=== PATIENT | male | born 1945 | race Caucasian/White ===

== ENCOUNTER 2018-09-22 13:07 | Emergency (ER) | payer MEDICARE, SELFPAY ==
[2018-09-22 13:08] VITALS: BP 123/77; PULSE 84; RESP 16; TEMP 36.5; BMI 22.6
--- NOTE | 2018-09-22 15:18 | ED.DCSUM_ITS ---
- ER Visit Summary Date of Service: 09/22/18 Chief Complaint: [Injury to right ear] History of Present Illness: The patient is a 73 M [the emergency department complaint of an injury to the right ear that occurred approximately noon today. Patient states that he was cutting some tree limbs when he tried to push one away from him however it struck him on the right ear. Patient denies limb hitting him in the head. No loss of consciousness. Patient is unsure of his last tetanus shot. The medical history.] Physical Examination: [HEENT-PERRLA, EOMI. Cranial nerves II through XII grossly intact. TMs clear. Mucous membranes moist. No adenopathy. Right ear- patient has a 4 cm complex laceration evolving the right ear with significant involvement of cartilage. Cardiovascular-regular rate and rhythm without murmur or ectopy Lungs-clear to auscultation, chest wall stable without crepitus or subcu emphysema Abdomen-normoactive bowel sounds, soft, nontender, no rebound or rigidity, no peritoneal signs. Extremities-intact ?4, normal range of motion, normal pulses, atraumatic] Test Results: [None indicated] Emergency Department Course and Treatment: [Patient was given Adacel tetanus booster. Case was discussed with ENT physician on-call as this is a complex laceration that I felt required consultation by specialist. ENT physician will present to the emergency department to evaluate patient and determine course of treatment.] Treatment Plan: [Patient advised to follow-up with Dr. Dhillon as advised by Dr. Dhillon. Patient advised to return if increasing pain, redness, swelling, purulent drainage, black discoloration to the ear, or conditions worsen anyway.] Patient will be started on Cipro at the request of Dr. Dhillon. Disposition: [Discharged home in stable condition.] Impression: [Complex right ear laceration] This note was generated with [employer] dictation software. It may contain incorrect words, spelling, and punctuation that were not noted in review of the chart prior to signing ED Disposition - Plan for ED Patient: Referrals: Martín Villanueva MD [Primary Care Provider] -
--- NOTE | 2018-09-22 16:52 | PCM.OPRPT ---
Problem List (1) Partial traumatic amputation of ear Status: Acute Qualifiers: Encounter type: initial encounter Laterality: right Qualified Code(s): S08.121A - Partial traumatic amputation of right ear, initial encounter Report of Operation Date of Procedure: 09/22/18 Pre-Operative Diagnosis: Partial trauamtic amputation of right ear Post-Operative Diagnosis: Same Surgery/Procedure Performed:: Surgical complex repair and debridement of right ear 6 cm in length Description of Surgical Findings:: Jas is a 73 y.o male who was struck by a tree branch resulting in a partial amputation of the superior portion of his right ear. Repair was offered with risk of infection, loss of partially amputated pedicle, and cosmetic deformity or need for revision or removal of non-viable tissue at a later date was reviewed and he was agreeable to repair. Witness informed consent was obtained at the bedside. Procedure went as follows: An auricular block of the right ear was applied with injection of 1% lidocaine with 1:1,000,000 epinephrine for a total of 10 mL. After allowing for vasoconstriction and anesthesia, the wound area was scrubbed of matted blood, foreign debris, and sloughed tissue. Betadine solution was then liberally applied and allowed to dry. This was then rinsed clear with sterile saline solution. The crushed non-viable tissue at the wound edges was then sharply resected. There was noted to be a serpentine wound through and through the superior aspect of the helical rim and scaphoid with an inferior based vascular pedicle. This remained pink and appeared viable. The wound was then closed deeply with 4-0 Vicryl sutures to reapproximated the helical rim and reposition the perichondrium over the cartilage. The scaphoid skin, which was peeled back and downward, was then redraped superiorly to cover the scaphoid cartilage. The skin edges were then closed with interrupted 5-0 Monocryl sutures for a total length of 6 cm. There were noted to be several abraded areas with loss of the superficial epithelium that were not amenable to closure and were left to heal by secondary intention. Bacitracin ointment was applied. He is leaving town for the next 3 weeks and he was advised to seek medical attention for redness, purulence, or blackening of the tissues. Antibiotic coverage with Cipro is advised with the risk of tendon rupture with the use of this antibiotic reviewed, but selected for its excellent cartilage penetration in this contaminated would. Type of Anesthesia:: Block,Regional Special Medications: none Specimen's removed: none Drains: none Estimated Blood Loss (mL): 10 mL Fluids Replaced: 0 mL Grafts/Implants Used: none - Complications none - Admit VTE Documentation VTE Present on Admission: No VTE Mechan Device Prophylaxis: None VTE Pharm Prophylaxis ordered?: No Reason prophylaxis not ordered:: Procedure Not Indicated
[2018-09-22] MEDS: Diphth,Pertuss(Acell),Tet Vac 0.5 ML Vial IM (16:57)
--- NOTE | 2018-09-22 17:06 | ED.DEP ---
ED Disposition - Plan for ED Patient: Instructions: LACERATION, Face (Suture or Tape) Prescriptions: Ciprofloxacin [Cipro] 500 mg PO BID #14 tab Prescription Printed Referrals: Martín Villanueva MD [Primary Care Provider] - Additional Instructions: See Dr. Dhillon as advised
[2018-09-22] MEDS: Ciprofloxacin 250 MG Tablet 500 MG PO (17:24)
== END 2018-09-22 17:29 | disposition home or self-care (01) ==
LOC: ED 15:13
PROVIDERS: Emergency Provider Emergency Medicine; Family Provider Family Medicine; PCP Family Medicine
DX: S08.121A Partial traumatic amputation of right ear, initial encounter (principal); W22.8XXA Striking against or struck by other objects, initial encounter; Y93.H2 Activity, gardening and landscaping; Z87.891 Personal history of nicotine dependence
CPT/HCPCS: 13152; 90471; 90715; 99282

== ENCOUNTER 2020-04-12 10:13 | Outpatient (RCR) | payer MEDICARE, SELFPAY | END 2020-04-12 23:59 | LOC: IMMUN 10:13 | PROVIDERS: PCP Family Medicine; Referring Provider Family Medicine; Visit Provider Family Medicine | DX: Z23 Encounter for immunization (principal) | CPT/HCPCS: 0011A; 0012A; 91301 ==